=== PATIENT | male | born 1965 | race Caucasian/White ===

== ENCOUNTER 2020-12-27 17:57 | Emergency (ER) | payer SELFPAY ==
[~2020-12-27] VITALS: Ht 177.8 cm; Wt 90.7 kg
[~2020-12-27 17:57] MED LIST: BUPR150T2 PO; CHLO25 PO; GABA300 PO; Lopressor 25 mg25 MG PO; OLANZAPINE5 MG PO; OXYC15ER PO; OXYC5 PO; ROPI1 PO
== END 2020-12-27 19:00 ==
LOC: EDBD 17:57 → ER 17:57
DX: I46.8 Cardiac arrest due to other underlying condition (principal); S00.81XA Abrasion of other part of head, initial encounter; R23.0 Cyanosis; V23.4XXA Motorcycle driver injured in collision with car, pick-up truck or van in traffic accident, initial encounter
CPT/HCPCS: 31500; 31720; 32551; 92950; 96374-59; 99285-25